=== PATIENT | male | born 1950 | race Caucasian/White ===

== ENCOUNTER → 2016-11-10 | Outpatient (REF) | payer MEDICARE, OTHER ==
[~2016-11-10] MED LIST: /ADVA50050; /TIOT18INH; ACET65TA; BIAX500T; DUONSOL; FLON0.05; MOTR200T4; PRED10TA2; PREV30TA; THERGRAN; TUSSSUS5; VENTAER; ZITH500T; ZOCO20TA; calcium + D; mucinex
== END ==
LOC: M LAB REF 11:50
PROVIDERS: ATTEND Physician Assistant Medical
DX: R11.10 Vomiting, unspecified (principal)